=== PATIENT | male | born 1965 | race African-American/Black ===

== ENCOUNTER 2022-05-04 15:30 | Emergency (ER) | payer MEDICARE, MEDICAID ==
[~2022-05-04] VITALS: Ht 177.8 cm; Wt 120.0 kg
[2022-05-04 16:50] VITALS: BP 130/62
== END 2022-05-04 16:51 | disposition home or self-care (01) ==
LOC: EMS 15:32
DX: J40 Bronchitis, not specified as acute or chronic (principal); F25.9 Schizoaffective disorder, unspecified; I50.9 Heart failure, unspecified; F15.90 Other stimulant use, unspecified, uncomplicated; F17.210 Nicotine dependence, cigarettes, uncomplicated; Z88.2 Allergy status to sulfonamides; Z59.00 Homelessness unspecified
CPT/HCPCS: 99283

== ENCOUNTER 2025-07-23 18:01 | Inpatient (IN) | payer OTHER ==
[~2025-07-23] VITALS: Ht 172.7 cm; Wt 167.8 kg
[2025-07-23 19:33] LABS: PLATELET COUNT (AUTO) 223 K/uL (150-450); RED BLOOD CELL COUNT(AUTO) 4.08 MIL/uL (4.50-5.90); RED CELL DISTRIBUTION WIDTH 16.1 % (11.5-14.5); WHITE BLOOD COUNT (AUTO) 6.2 K/uL (4.5-11.0)
[2025-07-23 19:36] LABS: CALCIUM, TOTAL 8.2 mg/dL (8.8-10.5); CREATININE 0.76 mg/dL (0.60-1.30); GLOMERULAR FILTR. RATE CALC > 60 mL/min (>60); GLUCOSE,RANDOM 133 mg/dL (70-110); SODIUM SERUM 142 mmol/L (136-145); UREA NITROGEN, BLOOD 15 mg/dL (7-18)
[2025-07-23 19:42] LABS: CREATINE KINASE, TOTAL ONLY 317 U/L (39-308)
[2025-07-23 19:53] LABS: TROPONIN I-HIGH SENSITIVITY 453 ng/L (<76)
[2025-07-23] MEDS: NITROGLYCERIN 2% (1 GM=INCH) OINTMENT PACKET TP ONE (20:03)
[2025-07-23] MEDS: ASPIRIN 325 MG TABLET PO ONE (20:04)
[2025-07-23] MEDS: FUROSEMIDE 40 MG/4 ML VIAL IVP ONE (20:04)
[2025-07-23 20:25] VITALS: PULSE 79; RESP 20; O2SAT 99
[2025-07-23] MEDS: ALBUTEROL SULFATE 2.5 MG/0.5 ML NEB SOLUTION NEB ONE ×2 (20:29→22:11)
[2025-07-23] MEDS: IPRATROPIUM BROMIDE 0.5 MG/2.5 ML NEB SOLUTION NEB ONE ×2 (20:29→22:12)
[2025-07-23 20:30] VITALS: PULSE 74; RESP 20; O2SAT 96
[2025-07-23 20:40] VITALS: PULSE 82; RESP 20; O2SAT 99
[2025-07-23 21:14] LABS: TROPONIN I-HIGH SENSITIVITY 441 ng/L (<76)
[2025-07-23] MEDS: SODIUM CHLORIDE 0.9% 250 ML IV ONE (21:38)
[2025-07-23] MEDS: CefTRIAXone 1 GM/DEXTROSE 50 ML IV ONE (22:05)
[2025-07-23] MEDS: AZITHROMYCIN 500 MG/NS 250 ML IV ONE (22:05)
[2025-07-23 22:13] VITALS: PULSE 70; RESP 18; O2SAT 91
[2025-07-23 22:13] LABS: LACTIC ACID 0.7 mmol/L (0.4-2.0)
[2025-07-24] VITALS (12 sets, daily range): BP systolic 132–144; BP diastolic 68–86; PULSE 63–88; RESP 18–20; TEMP 97.9–98.2; O2SAT 94–99
[2025-07-24] MEDS ORDERED: TRAZ-257 PO (00:18)
[2025-07-24] MEDS ORDERED: METF-1211 PO (00:18)
[2025-07-24] MEDS ORDERED: FURO40TA6 PO (00:18)
[2025-07-24] MEDS ORDERED: OxyCODONE HCL/ACETAMINOPHEN 5-325 MG TABLET PO PRN (02:45)
[2025-07-24] MEDS ORDERED: BISACODYL 10 MG RECTAL RECTAL SUPPOSITORY PR PRN (02:45)
[2025-07-24] MEDS ORDERED: ACETAMINOPHEN 325 MG TABLET PO PRN (02:45)
[2025-07-24] MEDS ORDERED: MORPHINE SULFATE 4 MG/ML SYRINGE IVP PRN (02:45)
[2025-07-24] MEDS ORDERED: ONDANSETRON HCL 4 MG/2 ML VIAL IVP PRN (02:45)
[2025-07-24] MEDS ORDERED: DEXTROSE 50%-WATER 25 GM/50 ML SYRINGE IVP PRN (03:00)
[2025-07-24] MEDS: IPRATROPIUM BROMIDE 0.5 MG/2.5 ML NEB SOLUTION NEB SCH (03:12)
[2025-07-24] MEDS: ALBUTEROL SULFATE 2.5 MG/0.5 ML NEB SOLUTION NEB SCH (03:12)
[2025-07-24] MEDS: HEPARIN SODIUM,PORCINE 5,000 UNITS/ML VIAL SQ SCH (08:19)
[2025-07-24] MEDS: PANTOPRAZOLE SODIUM 40 MG DR TABLET PO SCH (08:19)
[2025-07-24] MEDS: FUROSEMIDE 40 MG/4 ML VIAL IVP SCH (08:21)
[2025-07-24 10:14] LABS: APPEARANCE,URINE CLEAR (CLEAR); GLUCOSE, URINE (UA) 150-200 mg/dL (NEGATIVE); LEUKOCYTE ESTERASE ,URINE SMALL (NEGATIVE); NITRATE,URINE NEGATIVE (NEGATIVE); OCCULT BLOOD,URINE NEGATIVE (NEGATIVE); PH,URINE DRUG SCREEN 5.0 (5.0-8.0); SPECIFIC GRAVITIY, URINE 1.019 (1.003-1.030)
[2025-07-24 10:36] LABS: ALCOHOL, URINE DRUG SCREEN NEGATIVE (NEGATIVE); AMPHET/METH SCREEN,URINE POSITIVE (NEGATIVE); BARBITURATE SCREEN, URINE NEGATIVE (NEGATIVE); CANNABINOID SCREEN,URINE NEGATIVE (NEGATIVE); COCAINE SCREEN,URINE NEGATIVE (NEGATIVE); METHADONE SCREEN, URINE NEGATIVE (NEGATIVE)
[2025-07-24] MEDS: BENZONATATE 100 MG CAPSULE PO PRN (18:04)
[2025-07-24] MEDS: ATORVASTATIN CALCIUM 40 MG TABLET PO SCH (20:51)
[2025-07-24] MEDS: ZOLPIDEM TARTRATE 5 MG TABLET PO PRN (20:51)
[2025-07-24] MEDS: CefTRIAXone 1 GM/DEXTROSE 50 ML IV SCH (21:49)
[2025-07-24] MEDS: AZITHROMYCIN 500 MG/NS 250 ML IV SCH (22:38)
[2025-07-25] VITALS (10 sets, daily range): BP systolic 128–137; BP diastolic 52–80; PULSE 52–84; RESP 16–20; TEMP 98.4; O2SAT 94–99
[2025-07-25 08:43] LABS: PLATELET COUNT (AUTO) 235 K/uL (150-450); RED BLOOD CELL COUNT(AUTO) 4.25 MIL/uL (4.50-5.90); RED CELL DISTRIBUTION WIDTH 16.3 % (11.5-14.5); WHITE BLOOD COUNT (AUTO) 12.9 K/uL (4.5-11.0)
[2025-07-25 08:52] LABS: CALCIUM, TOTAL 9.0 mg/dL (8.8-10.5); CREATININE 0.88 mg/dL (0.60-1.30); GLOMERULAR FILTR. RATE CALC > 60 mL/min (>60); GLUCOSE,RANDOM 286 mg/dL (70-110); SODIUM SERUM 139 mmol/L (136-145); UREA NITROGEN, BLOOD 18 mg/dL (7-18)
[2025-07-25] MEDS: MAGNESIUM HYDROXIDE SUSPENSION 30 ML UDCUP PO PRN (12:36)
[2025-07-25] MEDS: IPRATROPIUM BROMIDE 0.5 MG/2.5 ML NEB SOLUTION NEB PRN (15:18)
[2025-07-25] MEDS: ALBUTEROL SULFATE 2.5 MG/0.5 ML NEB SOLUTION NEB PRN (15:18)
[2025-07-26 07:00] VITALS: PULSE 82; PULSE 86; RESP 20; O2SAT 97; O2SAT 98
[2025-07-26 07:49] LABS: PLATELET COUNT (AUTO) 245 K/uL (150-450); RED BLOOD CELL COUNT(AUTO) 4.27 MIL/uL (4.50-5.90); RED CELL DISTRIBUTION WIDTH 16.0 % (11.5-14.5); WHITE BLOOD COUNT (AUTO) 12.9 K/uL (4.5-11.0)
[2025-07-26 08:24] VITALS: BP 140/73; PULSE 73; RESP 20; TEMP 98; O2SAT 98
[2025-07-26 09:09] VITALS: PULSE 73; RESP 20; O2SAT 97
[2025-07-26 09:24] VITALS: PULSE 71; RESP 22; O2SAT 97
[2025-07-26] MEDS ORDERED: PRED-554 PO (12:01)
[2025-07-26] MEDS ORDERED: ALBU18HF12 IH (12:02)
[2025-07-26] MEDS ORDERED: AZIT-164 PO (12:02)
[2025-07-26 15:00] VITALS: BP 143/77; PULSE 67; RESP 18; TEMP 98.4; O2SAT 98
== END 2025-07-26 15:25 | disposition home or self-care (01) | DRG 193 ==
LOC: EMS 18:01 → EDH 23:27 → 5S 07-24 02:15
PROVIDERS: ADMIT Hospitalist; ATTEND Hospitalist
DX: J18.9 Pneumonia, unspecified organism (principal); J96.00 Acute respiratory failure, unspecified whether with hypoxia or hypercapnia; J44.0 Chronic obstructive pulmonary disease with (acute) lower respiratory infection; Z68.43 Body mass index [BMI] 50.0-59.9, adult; J44.1 Chronic obstructive pulmonary disease with (acute) exacerbation; I50.32 Chronic diastolic (congestive) heart failure; E66.2 Morbid (severe) obesity with alveolar hypoventilation; I16.0 Hypertensive urgency; F17.210 Nicotine dependence, cigarettes, uncomplicated; J20.9 Acute bronchitis, unspecified; I50.9 Heart failure, unspecified; F15.10 Other stimulant abuse, uncomplicated; Z71.6 Tobacco abuse counseling; Z79.899 Other long term (current) drug therapy; Z88.2 Allergy status to sulfonamides; Z91.199 Patient's noncompliance with other medical treatment and regimen due to unspecified reason; Z91.148 Patient's other noncompliance with medication regimen for other reason
CPT/HCPCS: 71045; 80048; 80307; 81001; 82550; 83605; 83880; 84145; 84484; 85025; 87040; 93005; 93306; 94640; 99291; G0378; J0456; J0696; J1644; J1938; J2919; 36415-L1; 36415-TC; J7613

== ENCOUNTER 2025-07-27 00:25 | Emergency (ER) | payer OTHER ==
[~2025-07-27] VITALS: Ht 170.2 cm; Wt 170.4 kg
[~2025-07-27 00:25] MED LIST: ALBU18HF12 IH; AZIT-164 PO; FURO40TA6 PO; METF-1211 PO; PRED-554 PO
[2025-07-27 00:52] VITALS: TEMP 98.1
[2025-07-27 01:15] LABS: GLUCOMETER DEV NAME(LOC) ERT.7; GLUCOSE,POINT OF CARE 392 MG/DL (70-110)
[2025-07-27 02:15] LABS: PLATELET COUNT (AUTO) 253 K/uL (150-450); RED BLOOD CELL COUNT(AUTO) 4.62 MIL/uL (4.50-5.90); RED CELL DISTRIBUTION WIDTH 15.8 % (11.5-14.5); WHITE BLOOD COUNT (AUTO) 12.7 K/uL (4.5-11.0)
[2025-07-27 02:17] LABS: CALCIUM, TOTAL 8.9 mg/dL (8.8-10.5); CREATININE 1.12 mg/dL (0.60-1.30); GLOMERULAR FILTR. RATE CALC > 60 mL/min (>60); GLUCOSE,RANDOM 397 mg/dL (70-110); SODIUM SERUM 138 mmol/L (136-145); UREA NITROGEN, BLOOD 30 mg/dL (7-18)
[2025-07-27 02:23] LABS: ASPARTATE AMINOTRANSFERASE 10.0 U/L (15-37); TOTAL PROTEIN, SERUM 7.3 g/dL (6.4-8.2)
[2025-07-27 02:29] LABS: TROPONIN I-HIGH SENSITIVITY 207 ng/L (<76)
[2025-07-27] MEDS: ALBUTEROL SULFATE 2.5 MG/0.5 ML 5 ML NEB SOLUTION NEB ONE (02:30)
[2025-07-27] MEDS: IPRATROPIUM BROMIDE 0.5 MG/2.5 ML NEB SOLUTION NEB ONE (02:37)
[2025-07-27] MEDS: ALBUTEROL SULFATE 2.5 MG/0.5 ML NEB SOLUTION NEB ONE (02:37)
[2025-07-27] MEDS: ALBUTEROL SULFATE HFA 90 MCG/PUFF 8 GM INHALER IH ONE (02:38)
[2025-07-27 02:40] VITALS: PULSE 75; PULSE 77; RESP 20; O2SAT 96
[2025-07-27 03:00] VITALS: PULSE 80; RESP 20; O2SAT 98
[2025-07-27 04:57] VITALS: BP 132/78; PULSE 77; RESP 18; O2SAT 96
== END 2025-07-27 05:44 | disposition home or self-care (01) ==
LOC: EMS 00:26
DX: J44.9 Chronic obstructive pulmonary disease, unspecified (principal); I50.9 Heart failure, unspecified; D72.829 Elevated white blood cell count, unspecified; F17.210 Nicotine dependence, cigarettes, uncomplicated; F15.90 Other stimulant use, unspecified, uncomplicated; Z79.52 Long term (current) use of systemic steroids; Z79.84 Long term (current) use of oral hypoglycemic drugs; Z79.899 Other long term (current) drug therapy; Z88.2 Allergy status to sulfonamides; Z98.890 Other specified postprocedural states
CPT/HCPCS: 99285; 71045; 80048; 80076; 82962; 83880; 84484; 85025; 36415; 94640; 93005; J3535; J7613